=== PATIENT | male | born 1950 | race Caucasian/White ===

== ENCOUNTER 2017-12-17 08:08 | Inpatient (IN) ==
[2017-12-17] MEDS ORDERED: Acetaminophen IV 1,000 MG/100 ML INFUS..BTL IVPB ONE (08:36)
[2017-12-17] MEDS ORDERED: cefOXitin 2,000 MG in Water for inj. (sterile) 20 ML 20 ML IVP ONE (08:37)
--- NOTE | 2017-12-17 08:38 | Anesthesia Evaluation PreOp ---
Date of Encounter: 12/17/17 Time of Encounter: 08:36 - Past History Planned Operation: Robotic sigmoi colon resection Cardiac History: Denies any Significant Hx Pulmonary History: Smoker (marijuana daily) FOOD CONSULTANT History: Denies Any Significant HX Other Medical History: Other (sigmoid diverticulitis) Anesthesia History: No Prior Anesthetic Complications, Past Anesthesia (back, L arm, microdiscectomy) Alcohol Use: occasionally Drug use: marijuana Medications and Allergies No Known Home Drugs 10/14/17 [History] 3 Allergy/AdvReac Type Severity Reaction Status Date / Time No Known Allergies Allergy Verified 12/01/17 08:44 - Meds/Allergy Pre-op Review Medications Reviewed: Yes Allergies Reviewed: Yes Beta Blockers on Current Med List: No Anesthesia Results - Labs Laboratory Tests 07/11/17 12/01/17 12/01/17 09:05 08:52 08:52 WBC 9.1 Hgb 14.0 Hct 42.9 Plt Count 269 Sodium 138 Potassium 4.2 Chloride 106 Carbon Dioxide 27 Creatinine 1.02 Anesthesia Exam O2 Sat Height 1.91 m Weight 108.862 kg Weight: 108kg NPO (# of Hours): >8 - HEENT Pupil (Motor): Pupils equal, EOMI Mallampati: I Teeth: Missing (several), Poor dentition Oral Opening: Greater than 3 - FOOD CONSULTANT LOC: Oriented FOOD CONSULTANT Motor: Normal RUE, Normal LUE, Normal RLE, Normal LLE, Normal Face FOOD CONSULTANT Sensory: Normal: RUE, LUE, RLE, LLE, Face - Cardiac Rhythm: Regular - Pulmonary Breath Sounds: bilateral Clear Respiratory Effort: Symmetrical Anesthesia Assess/Plan ASA Score: 2 Modified Brady Scale for Level of Consciousness: Cooperative, oriented, and tranquil Anesthetic Plan: General Monitoring Plan: Standard Monitors Recovery Plan: PACU
[2017-12-17] MEDS ORDERED: Ringers Solution, Lactated 1,000 ML IVC SCH (08:45)
[2017-12-17] MEDS ORDERED: Albuterol 2.5 MG/3 ML NEBULIZER IH ONE (08:48)
[2017-12-17] MEDS ORDERED: *HR* Midazolam HCl 2 MG/2 ML VIAL ONE (08:56)
[2017-12-17] MEDS ORDERED: *HR* Propofol 200 MG/20 ML VIAL IVP ONE (08:56)
[2017-12-17] MEDS ORDERED: *HR* FentaNYL (PF) 100 MCG/2 ML VIAL ONE ×2 (08:56→10:50)
[2017-12-17] MEDS ORDERED: Ondansetron 4 MG/2 ML VIAL ONE (08:57)
[2017-12-17] MEDS ORDERED: Dexamethasone 4 MG/ML VIAL ONE (08:57)
[2017-12-17] MEDS ORDERED: Lidocaine -MPF 2% 2 ML VIAL ONE (08:57)
[2017-12-17] MEDS ORDERED: *HR* Rocuronium Bromide 50 MG/5 ML VIAL ONE (08:57)
--- NOTE | 2017-12-17 09:51 | History & Physical Report ---
Date of Encounter: 12/17/17 Time of Encounter: 09:50 24 Hour HP Update - Instructions Instructions: If the History and Physical is less than 30 days old and was completed prior to A.M. admission and or procedure and has NOT been updated on calendar day of procedure please complete this update prior to performing procedure. - Update Patient reports changes in Medical Condition: No Changes in examination, assessment, or condition: No Changes in Medication: No Preop tests/diagnostics Reviewed: Yes Surgery Remains Indicated: Yes Consent for Planned Operative Procedure(s) Verified: Yes - Pre-Operative Checklist Preoperative Checklist Indicated: Yes Prophylactic Antibiotic Ordered: Yes Home Medications Include Beta Guera: No
[2017-12-17] MEDS ORDERED: *HR* Morphine 10 MG/ML VIAL ONE (11:27)
[2017-12-17] MEDS ORDERED: *HR* HYDROmorphone (PF) 1 MG/ML SYRINGE ONE (12:11)
[2017-12-17] MEDS ORDERED: *HR* OxyCODONE Immed Rel 5 MG TABLET PO PRN (12:13)
[2017-12-17] MEDS ORDERED: *HR* HYDROmorphone (PF) 1 MG/ML SYRINGE IVP PRN (12:13)
[2017-12-17] MEDS ORDERED: *HR* Promethazine 25 MG/ML VIAL IVP PRN (12:13)
[2017-12-17] MEDS ORDERED: Neostigmine Methylsulfate 3 MG/3 ML SYRINGE ONE (12:15)
[2017-12-17] MEDS ORDERED: Ketorolac 30 MG/ML VIAL ONE (12:27)
--- NOTE | 2017-12-17 12:41 | Operative Note ---
Date of procedure: 12/17/17 Pre-op diagnosis: Sigmoid diverticulitis Post-op diagnosis: same Procedure: Robotic sigmoid resection with 29 mm EEA stapling Anesthesia: ZHANG Surgeon: Wing Becker Was there an assistant professor of psychology present: Yes Environmental Services Attendant: Kathie Lazaro Estimated blood loss (cc): 0 Specimen: Sigmoid colon Condition: stable Disposition: floor Procedure in Detail: After informed consent, patient taken operating room placed supine position. After adequate sedation anesthesia patient was placed in a lithotomy position. After proper timeout a 12 mm cannula site was placed right superior to the umbilicus. Pneumoperitoneum was greater. A 13 mm cannula was placed in right lower quadrant. 5 mm camera was placed in the right upper quadrant. An 8 mm cannula was placed in subxiphoid region followed by another 8 mm in the left lower quadrant. Patient was placed in a headdown position. The robot was docked over the patient's left hip. Small bowel swept out of the pelvis. Rectosigmoid colon was then grasped and retracted cephalad. The peritoneum was then scored level of the sacral promontory. The left ureter was identified and kept on harm's way. The inferior mesenteric artery was then taken with a vessel sealer. The lateral rectosigmoid stalks were taken down the vessel sealer. The dissection was carried out down to approximate 4 cm above the pelvic floor. Rectosigmoid colon was dissected free from the retro-pubic tubercle region. Once it was freed a 45 mm robotic Endo staplers fired across the rectum. Once it was retracted and area was demarcated on the sigmoid colon for transection. Indocyanine green was infused and we had excellent perfusion. The splenic flexure was also taken down and mobilized. This mobilization allowed for less tension on the anastomosis. A counterincision was made in the suprapubic region. Dissection carried down the anterior rectus sheath. The rectus muscles were then divided in the midline with Jennifer clamp. Once they were split the rectosigmoid colon was delivered. Marianna bowel clamps are used to place across the colon proximal and distal and transected. Allis clamps are placed on the bowel and then a pursestring suture device placed on the colon. 3-0 Prolene suture was passed. A pursestring sutures and created and a 29 mm EEA anvil was placed. Suture was tied and secured. Colon was then placed back in the pelvis. The stapler was passed through the anal canal and to the rectal stump and then the spear was placed through the staple line. The anvil was then connected secured and fired. There were 2 excellent donuts. There were several 2-0 silk sutures used to buttress the staple line. A leak test revealed no leak. At that point the procedure was terminated. All incisions are closed with 0 Vicryl suture and 4-0 Vicryl suture. Marcaine was inserted in the Pfannenstiel incision. He tolerated the procedure well.
--- NOTE | 2017-12-17 12:59 | Anesthesia Evaluation Post Op ---
Date of Encounter: 12/17/17 Time of Encounter: 12:55 - Vital Signs Vital Signs: Vital Signs - Last 8 Hours Temp Pulse Resp BP Pulse Ox 12/17/17 12:54 90 12 129/98 93 12/17/17 12:44 86 13 135/85 96 12/17/17 12:34 97.7 F 88 15 141/85 100 12/17/17 08:38 97.9 F 82 18 119/77 96 Intake and Output 12/16/17 12/17/17 12/17/17 23:59 07:59 15:59 Intake Total 20 20 Output Total 115 / 115 Balance -95 / -95 Intake: IV Fluids 20 / 20 Mefoxin 2,000 MG In Water for 20 20 inj. (sterile) 20 ML @ 300 mls/ hr IVP PREOP ONE Rx#:[id number] Output: Estimated Blood Loss 15 Urine Amount (Catheter) 100 / 100 Other: Weight 108.862 kg Patient Weight 12/17/17 23:59 Weight 108.862 kg - Lungs Lungs: Clear Ascult./Percussion - Airway Airway: Non-obstructed - Cardiovascular Regular Rate, Baseline Rhythm - Mental Status Mental Status: Alert & Oriented, Answers Appropriately - Pain Pain Scale: 0 Pain Scale used: Numeric (1 - 10) - Nausea Vomiting Nausea Vomiting: Not Present - Hydration Hydration: Ice chips - Discharge PostOp Status: Transfer Patient to floor
[2017-12-17] MEDS ORDERED: Naloxone 0.4 MG/ML INJ IVP PRN (13:43)
[2017-12-17] MEDS ORDERED: Ondansetron 4 MG/2 ML VIAL IVP PRN (13:43)
[2017-12-17] MEDS ORDERED: OXYCODONE Oral CONC 10 MG/0.5 ML ORAL.SYG SL PRN (13:43)
[2017-12-17] MEDS: 0.9 % Sodium Chloride 1,000 ML IVC SCH ×2 (17:12→17:46)
[2017-12-17] MEDS: Ketorolac 15 MG/ML VIAL IVP SCH ×2 (18:04→23:48)
[2017-12-18 05:41] LABS: Basophils % 0.1 %; Hematocrit 39.3 % (37.5-50.1); Hemoglobin 12.8 g/dL (12.9-16.9); Immature Granulocytes % 0.5 % (0-4); Lymphocytes # 0.8 K/mcL (0.6-4.6); Lymphocytes % 6.9 %; Mean Corpuscular HGB Conc 32.6 g/dL (31.6-35.5); Mean Corpuscular Hemoglobin 27.9 pg (28.0-33.3); Mean Corpuscular Volume 85.6 fL (83.0-100.0); Mean Platelet Volume 10.1 fL (9.4-12.4); Monocytes # 0.6 K/mcL (0.0-1.3); Monocytes % 5.1 %; Neutrophils # 10.6 K/mcL (1.6-8.9); Platelet Count 250 K/mcL (140-400); Red Blood Count 4.59 M/mcL (4.19-5.50); Red Cell Distribution Width 14.8 % (11.5-14.5); Segmented Neutrophils % 87.4 %
[2017-12-18] MEDS: 0.9 % Sodium Chloride 1,000 ML IVC SCH (05:58)
[2017-12-18] MEDS: Ketorolac 15 MG/ML VIAL IVP SCH (05:58)
[2017-12-18 06:02] LABS: BUN/Creatinine Ratio 28 (6-26); Blood Urea Nitrogen 29 mg/dL (8-23); Calcium 8.9 mg/dL (8.6-10.3); Carbon Dioxide 21 mEq/L (23-29); Chloride 108 mEq/L (98-107); Glucose 138 mg/dL (70-105); Osmolality,Calculated 292 (280-300); Potassium 4.1 mEq/L (3.5-5.1); Sodium 137 mEq/L (136-145); eGFR For Non-African Americans > 60 (> 60)
[2017-12-18] MEDS ORDERED: Ibuprofen 800 MG TABLET PO PRN (09:16)
[2017-12-18] MEDS ORDERED: Acetaminophen IV 1,000 MG/100 ML INFUS..BTL IVPB ONE (09:16)
--- NOTE | 2017-12-18 09:20 | General Surgery Progress Note ---
Date of Encounter: 12/18/17 Time of Encounter: 08:57 - Assessment and Plan (1) Sigmoid diverticulitis Current Visit: Yes Status: Acute Date of procedure: 12/17/17 Pre-op diagnosis: Sigmoid diverticulitis Post-op diagnosis: same Procedure: Robotic sigmoid resection with 29 mm EEA stapling Anesthesia: ZHANG Surgeon: Wing Becker POD #1 as above for recurrent sigmoid diverticulitis. He states his discomfort is overall well controlled. He reports he is hungry and would like to get oob. Abd exam is grossly WNL. Plan: -continue supportive care and discomfort management -clear liquid diet, no carbonation, add protein supplements -continue DVT and G.I. prophylaxis -ambulate as tolerated up ad maxx. -out of bed to chair for all trays -continue pulmonary toileting, incentive spirometry 10 times every hour while awake -DC planning in the next 24 to 48 hours pending clinical course (2) S/P colon resection Current Visit: Yes Status: Acute pathology pending See above Objective Vital Signs - Last 8 Hours Temp Pulse Resp BP Pulse Ox 12/18/17 06:55 98.1 F 75 14 119/69 94 12/18/17 04:19 98.9 F 71 15 117/68 97 Intake and Output 12/17/17 12/18/17 12/18/17 23:59 07:59 15:59 Intake Total 413 / 413 1000 / 1000 Output Total 205 / 205 400 / 400 Balance 208 / 208 600 / 600 Intake: IV Fluids 413 / 413 1000 / 1000 0.9 % Sodium Chloride 1,000 ML 1000 / 1000 @ 75 mls/hr IVC .[id number] Rx #:[id number] Lactated Ringers 1,000 ML @ 25 413 / 413 mls/hr IVC .Q24H KAUSHIK Rx#: [id number] Oral 0 / 0 0 / 0 Output: Urine 300 / 300 Catheter 205 / 205 100 / 100 Other: Meal NPO for supper # Bowel Movements 0 0 Weight 109.9 kg - Labs 12/18/17 05:04 12/18/17 05:04 Diabetes panel 12/18/17 Range/Units 05:04 Sodium 137 (136-145) mEq/L Potassium 4.1 (3.5-5.1) mEq/L Chloride 108 H (98-107) mEq/L Carbon Dioxide 21 L (23-29) mEq/L BUN 29 H (8-23) mg/dL Creatinine 1.04 (0.70-1.30) mg/dL Glucose 138 H (70-105) mg/dL Calcium 8.9 (8.6-10.3) mg/dL Calcium panel 12/18/17 Range/Units 05:04 Calcium 8.9 (8.6-10.3) mg/dL Pituitary panel 12/18/17 Range/Units 05:04 Sodium 137 (136-145) mEq/L Potassium 4.1 (3.5-5.1) mEq/L Chloride 108 H (98-107) mEq/L Carbon Dioxide 21 L (23-29) mEq/L BUN 29 H (8-23) mg/dL Creatinine 1.04 (0.70-1.30) mg/dL Glucose 138 H (70-105) mg/dL Calcium 8.9 (8.6-10.3) mg/dL Adrenal panel 12/18/17 Range/Units 05:04 Sodium 137 (136-145) mEq/L Potassium 4.1 (3.5-5.1) mEq/L Chloride 108 H (98-107) mEq/L Carbon Dioxide 21 L (23-29) mEq/L BUN 29 H (8-23) mg/dL Creatinine 1.04 (0.70-1.30) mg/dL Glucose 138 H (70-105) mg/dL Calcium 8.9 (8.6-10.3) mg/dL - VTE Documentation of Mechanical Device: Intermittent pneumatic compression device Consult Discharge Plan - Plan Instructions: Colectomy (DC), Low Fiber Diet (GEN), Diverticulitis Diet (DC) Additional Instructions: General Surgical Discharge Instructions 1. No pushing, pulling, or lifting greater than 15 lbs for 2-4 weeks (depending upon procedure). 2. You may shower beginning today, but no tub baths, soaking, or swimming for 2 weeks. 3. You may resume driving when you are off narcotics and are safe to react in a car. 4. Take ibuprofen every 8 hours for discomfort. If this does not relieve discomfort, you may take the as needed Percocet. Take narcotics as directed. Do not take more narcotics then directed and do not share your narcotics with any other person. Do not drink alcohol while on narcotics. 5. Take stool softeners (Colace) or a water based laxative (Miralax) while taking narcotics. You may hold for loose stools. 6. Report any fevers greater than 100.5F, increase abdominal discomfort, drainage that looks like pus, increased redness or pain at the surgical site, or any vomiting. 7. Report any pain in the calves, shortness of breath, or rapid heartbeat. 8. Follow-up in the office as directed. 9. If you were prescribed antibiotics, do not stop them without talking to your provider. 10. Follow a low residue diet until directed otherwise. Referrals: Yolette Bazan CNP [Advanced Practice Nurse] - 12/30/17 1:00 pm Juan Parkinson MD [Primary Care Provider] -
[2017-12-18] MEDS ORDERED: Pantoprazole 40 MG VIAL IVP SCH (09:30)
[2017-12-18] MEDS ORDERED: *HR* OxyCODONE/APAP 5/325 TABLET PO PRN (13:13)
[2017-12-19 05:25] LABS: Basophils % 0.1 %; Eosinophils % 0.2 %; Hematocrit 37.9 % (37.5-50.1); Hemoglobin 12.4 g/dL (12.9-16.9); Immature Granulocytes % 0.5 % (0-4); Lymphocytes # 2.1 K/mcL (0.6-4.6); Lymphocytes % 17.9 %; Mean Corpuscular HGB Conc 32.7 g/dL (31.6-35.5); Mean Corpuscular Hemoglobin 28.8 pg (28.0-33.3); Mean Corpuscular Volume 87.9 fL (83.0-100.0); Mean Platelet Volume 10.4 fL (9.4-12.4); Monocytes # 0.9 K/mcL (0.0-1.3); Monocytes % 7.3 %; Neutrophils # 8.7 K/mcL (1.6-8.9); Platelet Count 224 K/mcL (140-400); Red Blood Count 4.31 M/mcL (4.19-5.50); Red Cell Distribution Width 14.9 % (11.5-14.5)
[2017-12-19 05:51] LABS: BUN/Creatinine Ratio 26 (6-26); Blood Urea Nitrogen 25 mg/dL (8-23); Calcium 8.6 mg/dL (8.6-10.3); Carbon Dioxide 23 mEq/L (23-29); Chloride 107 mEq/L (98-107); Glucose 116 mg/dL (70-105); Osmolality,Calculated 287 (280-300); Potassium 4.1 mEq/L (3.5-5.1); Sodium 136 mEq/L (136-145); eGFR For Non-African Americans > 60 (> 60)
--- NOTE | 2017-12-19 09:48 | Discharge Summary ---
Date of Encounter: 12/19/17 Time of Encounter: 09:30 - Discharge Diagnosis (1) Sigmoid diverticulitis Priority: Primary Status: Resolved (2) S/P colon resection Priority: Primary Status: Acute General Surgery Exam Initial Vital Signs Temp Pulse Resp BP Pulse Ox 97.9 F 82 18 119/77 96 12/17/17 08:38 12/17/17 08:38 12/17/17 08:38 12/17/17 08:38 12/17/17 08:38 - General physical appearance well developed, well nourished, no distress - Eyes normal ocular movement - ENT normal mucosa, atraumatic, normocephalic - Neck trachea midline - Respiratory normal respiratory effort, clear to auscultation - Cardiovascular Cardiovascular exam: Present: RRR - Abdomen Abdomen general surgery: Present: bowel sounds present, soft, tender (Expected postoperative tenderness, minimal) - Incision Incision: Present: clean and dry, intact - Integumentary Integumentary general surgery: Present: warm and dry - Neurologic Present: CN 2-12 grossly intact - Musculoskeletal Present: normal gait, normal posture - Psychiatric Psychiatric general surgery: Present: appropriate, oriented to person, oriented to place, oriented to time, speech is normal, memory intact - Hospital Course Hospital course: Mr. Kaplan is a 67 year old male with a history of sigmoid diverticulitis. He is postoperative day #2 from a sigmoid resection with Dr. Becker. He is tolerating a soft diet without nausea or vomiting. His pain is well- controlled. His vital signs are stable he is afebrile. He is voiding and ambulating without difficulty. We will begin discharge planning to home and plan for outpatient follow-up in the next 10-14 days. - Time Spent with Patient Total time spent providing and/or coordinating discharge services: Less than 30 minutes - Discharge Medications Prescriptions: Ondansetron ODT [Zofran ODT] 4 mg SL Q6HR PRN #30 tab.rapdis PRN Reason: Nausea OxyCODONE/APAP 5/325 [Percocet 5/325 MG] 1 each PO Q6HR PRN 5 Days #20 tablet PRN Reason: MODERATE PAIN Docusate [Colace] 100 mg PO BID #30 capsule Ibuprofen [Ibu] 800 mg PO TID #50 tablet Home Medications: Docusate [Colace] 100 mg PO BID #30 capsule 12/19/17 [Rx] Ibuprofen [Ibu] 800 mg PO TID #50 tablet 12/19/17 [Rx] Ondansetron ODT [Zofran ODT] 4 mg SL Q6HR PRN #30 tab.rapdis 12/19/17 [Rx] OxyCODONE/APAP 5/325 [Percocet 5/325 MG] 1 each PO Q6HR PRN 5 Days #20 tablet [Rx] Allergies/Adverse Reactions: 3 Allergy/AdvReac Type Severity Reaction Status Date / Time No Known Allergies Allergy Verified 12/18/17 08:44 Date of admission: 12/17/17 13:36 Primary care physician: Juan Parkinson MD Consults: 12/18/17 09:22 consult to founder [Consult to Nutrition] [CONS] Routine Comment: Consulting Provider: NUTRITION Reason for Dietary Consult: Diet Education Other:: low residue/diverticulitis Discharging clinician: Wing Becker) Anticipated date of discharge: 12/19/17 Labs on day of discharge: Labs from last 24 hours 12/19/17 12/19/17 04:19 04:19 WBC 11.8 H RBC 4.31 Hgb 12.4 L Hct 37.9 MCV 87.9 MCH 28.8 MCHC 32.7 RDW 14.9 H Plt Count 224 MPV 10.4 Immature Gran % 0.5 Seg Neutrophils % 74.0 Lymphocytes % 17.9 Monocytes % 7.3 Eosinophils % 0.2 Basophils % 0.1 Neutrophils # 8.7 Lymphocytes # 2.1 Monocytes # 0.9 Eosinophils # 0.0 Basophils # 0.0 Sodium 136 Potassium 4.1 Chloride 107 Carbon Dioxide 23 BUN 25 H Creatinine 0.96 Est GFR ( Amer) > 60 Est GFR (Non-Af Amer) > 60 BUN/Creatinine Ratio 26 Glucose 116 H Calculated Osmolality 287 Calcium 8.6 - Patient Status Disposition: Home, Self-Care Condition: Good Functional capacity at discharge: independent ambulation Overall status at discharge: patient is progressing back to baseline - Discharge Instructions Instructions: Low Fiber Diet (GEN), Colectomy (DC), Diverticulitis Diet (DC) Follow Up With: Yolette Bazan CNP [Advanced Practice Nurse] - 12/30/17 1:00 pm Juan Parkinson MD [Primary Care Provider] - Additional Instructions: General Surgical Discharge Instructions 1. No pushing, pulling, or lifting greater than 15 lbs for 4 weeks 2. You may shower beginning today, but no tub baths, soaking, or swimming for 2 weeks. 3. You may resume driving when you are off narcotics and are safe to react in a car. 4. Take ibuprofen every 8 hours for discomfort. If this does not relieve discomfort, you may take the as needed Percocet. Take narcotics as directed. Do not take more narcotics then directed and do not share your narcotics with any other person. Do not drink alcohol while on narcotics. 5. Take stool softeners (Colace) or a water based laxative (Miralax) while taking narcotics. You may hold for loose stools. 6. Report any fevers greater than 100.5F, increase abdominal discomfort, drainage that looks like pus, increased redness or pain at the surgical site, or any vomiting. 7. Report any pain in the calves, shortness of breath, or rapid heartbeat. 8. Follow-up in the office as directed. 9. If you were prescribed antibiotics, do not stop them without talking to your provider. 10. Follow a low residue diet until directed otherwise. - Diet and Activity Activity: other (See additional instructions above) Diet: advance to your usual diet - Attending Attestation For this encounter, I have reviewed the [employer] or PA documentation, treatment plan, and medical decision making; and I have had face to face time with this patient.
[2017-12-19 10:08] VITALS: BP 130/79
== END 2017-12-19 11:16 | disposition home or self-care (01) | DRG 331 ==
LOC: SAMDAY 08:08 → 3ANU 13:36
PROVIDERS: ADMIT Surgery; ATTEND Surgery